=== PATIENT | female | born 1975 | race Caucasian/White ===

== ENCOUNTER 2020-10-22 14:57 | Emergency (ER) | payer OTHER, MEDICAID, SELFPAY ==
[2020-10-22 14:58] VITALS: BP 130/93; PULSE 75; RESP 18; TEMP 36.3; O2SAT 100; BMI 36.8
--- NOTE | 2020-10-22 15:27 | RAD_ITS ---
STUDY: X-RAY - LEFT KNEE REASON FOR EXAM: Female, 44 years old. Fall at work. Pain. TECHNIQUE: 4 view(s) of the knee. COMPARISON: None. FINDINGS: Normal visualized distal femur. Normal visualized proximal tibia and fibula. Normal proximal tibiofibular articulation. Normal medial femorotibial compartment. Normal lateral femorotibial compartment. Normal patellofemoral articulation. The soft tissue structures are unremarkable. RAD/Knee 4 or More Views IMPRESSION: Normal x-ray examination of the knee. Electronically Signed: Toan Garcia MD at 16:57 EDT , Service support ,
--- NOTE | 2020-10-22 15:27 | RAD_ITS ---
STUDY: X-RAY - RIGHT WRIST REASON FOR EXAM: Female, 44 years old. Fall at work. Pain. TECHNIQUE: view(s) of the wrist were obtained. COMPARISON: None. FINDINGS: Normal visualized distal radius and ulna. Normal radiocarpal articulation. Normal distal radioulnar articulation. Normal carpal bones. Normal carpal articulations. Normal carpometacarpal articulation of the thumb. Normal second through fifth carpometacarpal articulations. Normal visualized metacarpal bones. The soft tissue structures are unremarkable. RAD/Wrist min 3 Views IMPRESSION: No acute abnormality. Electronically Signed: Toan Garcia MD at 16:58 EDT , Service support ,
--- NOTE | 2020-10-22 15:27 | RAD_ITS ---
STUDY: X-RAY - LEFT TIBIA AND FIBULA REASON FOR EXAM: Female, 44 years old. Fall at work. Pain. TECHNIQUE: 2 view(s) of the tibia and fibula were obtained. COMPARISON: None. FINDINGS: Normal visualized tibia. Normal visualized fibula. The soft tissue structures are unremarkable. RAD/Tibia & Fibula 2 Views IMPRESSION: Normal x-ray examination of the tibia and fibula. Electronically Signed: Toan Garcia MD at 16:58 EDT , Service support ,
--- NOTE | 2020-10-22 16:19 | EDS_ITS ---
HPI History of Present Illness Chief Complaint: Fall Narrative Narrative: Patient states she was at work today when she slipped and landed from a standing position onto her left knee and then tried to catch herself with her right arm. She states she has had pain in her right wrist region as well as her left knee since the trauma. She denies striking her head any loss of consciousness or blood thinner use. However with the trauma occurring at work they had concern for underlying injury and sent her in for evaluation [facility] Medical History (Updated 10/22/20 @ 17:[address] Daron Vaughn, DO) Asthma History of cervical cancer Home Medications citalopram 30 mg PO DAILY 10/22/20 [History Last Taken Unknown] Surgical History (Updated 10/22/20 @ 15:07 by Shaneka Kim) History of cholecystectomy History of hysterectomy History of umbilical hernia repair Social History Smoking Status: Never smoker ROS ROS ED Constitutional Constitutional ED: Denies chills or fever(s) Eyes Eyes: Denies change in vision ENT ENT ED: Denies rhinorrhea Cardiovascular Cardiovascular: Denies chest pain Respiratory/Chest Respiratory/Chest: Denies dyspnea Gastrointestinal Gastrointestinal: Denies abdominal pain, nausea or vomiting Musculoskeletal Musculoskeletal: Denies back pain or neck pain Integumentary Denies Abrasions Neurologic Neurologic: Denies headache(s) Hematologic/Lymphatic Hematologic/Lymphatic: Denies easy bleeding or easy bruising EXAM Physical Exam Const Vital Signs: 10/22/20 14:58 10/22/20 15:07 Temperature 97.4 F L Temperature Source Temporal Pulse Rate 75 Respiratory Rate 18 Respiratory Effort Normal Respiratory Depth Normal Respiratory Pattern Normal Blood Pressure 130/93 H Blood Pressure Mean 105 Pulse Ox 100 Oxygen Delivery Method Room Air Room Air HEENT atraumatic Eyes PERRL and EOMs intact bilaterally Neck full ROM General: Negative for tenderness Resp normal respiratory effort and clear to auscultation bilaterally Cardio regular rhythm Rate: regular rate Back/Spine normal to inspection and no thoracic nor lumbar tenderness Extremity Extremity Narrative: Left lower extremity is neurovascularly intact. There is no obvious ecchymosis or abrasions noted but there is pain with palpation over top the anterior aspect of the patella. There is no joint effusion or bony deformity. No ligamentous laxity and patellar tendon is normal. Patient also has mild pain to palpation of her right distal forearm. Again there is no signs of bruising or abrasions at the site no bony deformity or joint effusion. The right upper extremity is neurovascularly intact and there are no signs of ligamentous or tendon injury Neuro oriented x3, CN's II-XII intact bilaterally and moves all extremities Sensorium / Orientation: alert Psych mental status grossly normal Skin no wounds MDM MDM MDM Narrative Medical decision making narrative: Patient had a mechanical fall therefore there is no need for cardiac or syncope work-up. Also she did not strike her head or is on blood thinner so there is no need for head or cervical spine CT. x-rays were obtained of the area that were painful and showed no acute fracture. Therefore patient is safe for discharge Radiography Diagnostic Testing: Radiology Impression Knee X-Ray 10/22/20 15:27 IMPRESSION: Normal x-ray examination of the knee. Electronically Signed: Toan Garcia MD at 16:57 EDT , Service support , Tibia/Fibula X-Ray 10/22/20 15:27 IMPRESSION: Normal x-ray examination of the tibia and fibula. Electronically Signed: Toan Garcia MD at 16:58 EDT , Service support , Wrist X-Ray 10/22/20 15:27 IMPRESSION: No acute abnormality. Electronically Signed: Toan Garcia MD at 16:58 EDT , Service support , Discharge Plan Triage Chief Complaint: Fall ED Provider: Daron Vaughn Dx/Rx/DC Orders Clinical Impression: Contusion of multiple sites, Accidental fall Prescriptions: No Action citalopram 20 mg Tablet 30 mg PO DAILY RF: 0 Primary Care Provider: Care Physician,No Primary Referrals: Steven Taylor DO [STAFF PHYSICIAN] - 3-5 Days if not improving Care Physician,No Primary [Primary Care Provider] - Disposition Disposition: Home, Self Care
== END 2020-10-22 18:03 | disposition home or self-care (01) ==
PROVIDERS: Emergency Provider Emergency Medicine
DX: S60.211A Contusion of right wrist, initial encounter (principal); S80.02XA Contusion of left knee, initial encounter; W01.0XXA Fall on same level from slipping, tripping and stumbling without subsequent striking against object, initial encounter; Z85.41 Personal history of malignant neoplasm of cervix uteri; Z79.899 Other long term (current) drug therapy
CPT/HCPCS: 73110; 73564; 73590; 99282